=== PATIENT | female | born 1985 | race Caucasian/White ===

== ENCOUNTER 2020-03-13 15:47 | Emergency (ER) | payer OTHER, SELFPAY ==
--- NOTE | 2020-03-13 16:24 | XR_ITS ---
EXAMINATION: XR CHEST CLINICAL INFORMATION: Chest pain COMPARISON: None TECHNIQUE: Frontal portable view of the chest was obtained. 1630 hours FINDINGS: No significant abnormality is noted involving the heart, lungs, mediastinum, bony thorax or soft tissues. XR/XR chest 1V IMPRESSION: Unremarkable examination.
--- NOTE | 2020-03-13 16:24 | ECG_ITS ---
Test Reason : GENERAL MEDICAL Blood Pressure : / mmHG Vent. Rate : 090 BPM Atrial Rate : 090 BPM P-R Int : 132 ms QRS Dur : 062 ms QT Int : 358 ms P-R-T Axes : 068 035 022 degrees QTc Int : 437 ms Normal sinus rhythm Normal ECG No previous ECGs available Referred By: Alejandro Funes Electronically Signed By:Kendrick Montano
[2020-03-13 16:26] VITALS: BP 138/95; PULSE 95; RESP 18; TEMP 36.8; O2SAT 100; BMI 42.0
--- NOTE | 2020-03-13 16:26 | ED.CHESTPAIN ---
HPI - Chest Pain General Chief Complaint: Chest Pain Stated Complaint: Chest pain Time Seen by Provider: 03/13/20 16:22 Source: patient Mode of arrival: ambulatory Limitations: no limitations History of Present Illness HPI narrative: This is a primarily Persian-speaking 34-year-old female who denies any significant past medical history presents ambulatory via triage were she reports that she has been having body aches and right-sided chest pain that radiates to her right arm for the past several days she had a tele visit her primary care doctor advised her to come to the emergency room given her complaints. She reports to me that she has had some body aches, chills and the right-sided chest pain minimal cough. Pain in right side is reproducible and hurts more with movement and palpation. No recent travel or sick contacts. No recent antibiotics or hospitalization. No hormone use. States she has no concern for . MD complaint: chest discomfort Onset (ago): day(s) Prior episodes: Yes (States she had similar type of pain in the past couple years ago ) Pain location: right chest Pain radiation: right arm Severity: moderate Quality: aching Relieving factors: nothing Exacerbating factors: palpation and movement Context: recent illness Treatment prior to arrival: none Risk Factors Coronary artery disease risk factors: none Thoracic aortic dissection risk factors: none Related Data On Oral Contraceptives: No Allergies Allergy/AdvReac Type Severity Reaction Status Date / Time No Known Allergies Allergy Unverified 11/02/19 19:48 Review of Systems Review of Systems: Constitutional: No Weight loss, No Fever, + Chills, No Night Sweats, No Fatigue, No Malaise ENT/Mouth: No Hearing loss, No Ear Pain, + Nasal Congestion, No Sinus Pain, No Hoarseness, No sore throat, No Swallowing Difficulty Eyes: No Eye Pain, No Swelling, No Redness, No Foreign Body, No Discharge, No Vision Changes Cardiovascular: + Chest Pain, No SOB, No Dyspnea on Exertion, No Orthopnea, No Edema, No Palpitations Respiratory: No Smoke Exposure, No Dyspnea Gastrointestinal: No Nausea, No Vomiting, No Diarrhea, No Constipation, No abdominal Pain, No Hematochezia, No Melena Genitourinary: no irregular bleeding, No Dysuria, No Urinary Frequency, No Hematuria, No Urinary Incontinence, No Urgency, No Flank Pain Musculoskeletal: No joint pain, + Myalgias, No Joint Swelling Skin: No Skin Lesions, No rash Neuro: No Weakness, No Numbness, No Paresthesias, No Loss of Consciousness, No Headache Psych: No Anxiety/Panic, No Depression, No Social Issues Heme/Lymph: No Bruising, No Bleeding,No Lymphadenopathy Endocrine: No Polyuria, No Polydipsia, No Temperature Intolerance Yes all other systems are reviewed and are negative [facility] Past Medical History Medical History (Updated 03/13/20 @ 16:41 by Alejandro Funes NP) Chest pain Physical Exam Vital Signs: Vital Signs: Reviewed Const: General: cooperative and healthy appearing; No acute distress or intoxicated appearing Nutritional Appearance: average body habitus Orientation/consciousness: patient oriented x3 HENMT: Head: Yes normal to inspection Ears: hearing grossly normal bilaterally Eyes: General: appearance normal, both eyes and all related structures Visual Alarcon: normal visual alarcon by confrontation Neck: Neck: Yes normal visual inspection, No positive Brudzinski's sign, No positive Kernig's sign and No tender Thyroid: Thyroid normal Chest: Chest palpation & inspection: normal inspection of the chest and tenderness (Right-sided very tender immediately flinched when I press on the chest. ) pectoral muscle and other ([employer] FERNANDO Barcenas ) Resp: Effort & Inspection: normal respiratory effort Auscultation: clear to auscultation bilaterally Cardio: Jugular venous distension: no JVD Rhythm: regular rhythm Heart sounds: S1 normal heart sound present and S2 normal heart sound present GI: Inspection: Yes normal to inspection Percussion: Yes normal to percussion Auscultation: normal bowel sounds : General: Yes no CVA tenderness Back/Spine/Pelvis: Back: no CVA tenderness Skin: General skin exam: no rashes or lesions noted Neuro: General: patient oriented x3 Extrem: General: Yes normal to inspection Course Reevaluation(s) Reevaluation #1: 1710 Sign-out to Silva pending labs, re-evaluation and disposition MDM - Chest Pain MDM Narrative Medical decision making narrative: Perc negative Heart score 0 Pulse oximeter 100% on room air, not tachycardic, blood pressure stable. In review 34-year-old female with 5 days of upper respiratory symptoms and reproducible right-sided chest wall pain radiating to right arm advised by primary care doctor during tele visit to come to emergency room for evaluation given that she was complaining of chest pain. Will check screening labs including cardiac enzymes, chest x-ray EKG and COVID-19. Again clinically more consistent with musculoskeletal viral syndrome type symptoms and less likely cardiopulmonary in etiology. Differential Diagnosis Differential diagnosis: Likely atypical chest pain, costochondritis and chest pain; Unlikely fracture of rib, pneumothorax, stable angina, unstable angina pectoris, st elevation myocardial infarction and biliary colic Differential diagnosis: Viral syndrome, upper respiratory infection Medical Records Data Attestation: I reviewed the patient's medical records. Lab Data Attestation: I reviewed the patient's lab results. Discharge Plan Discharge Clinical Impression: Atypical chest pain
[2020-03-13 16:54] LABS: MANUAL DIFF FLAG NO
[2020-03-13 16:55] VITALS: BP 126/82; PULSE 93
[2020-03-13 16:57] LABS: Basophils Absolute Auto 0.1 X10*3/uL (0.0-0.2); Basophils Percent Auto 0.5 % (0-2); Eosinophils Absolute Auto 0.2 X10*3/uL (0.0-0.4); Eosinophils Percent Auto 1.9 % (0-4); Hematocrit 43.2 % (37-47); Hemoglobin 14.3 g/dl (12.0-16.0); Imm Gran Abs Auto 0.02 X10*3/uL (0.00-0.03); Imm Gran Pct Auto 0.2 % (0.0-0.4); Lymphocytes Absolute Auto 1.4 X10*3/uL (1.2-4.9); Lymphocytes Percent Auto 14.6 % (20-40); Mean Corpuscular HGB Conc 33.1 g/dl (31.0-35.0); Mean Corpuscular Hemoglobin 28.1 pg (27.0-33.0); Mean Corpuscular Volume 84.9 fL (80-98); Mean Platelet Volume 10.9 fL (9.4-12.3); Monocytes Absolute Auto 0.4 X10*3/uL (0.1-1.2); Monocytes Percent Auto 4.5 % (2-11); Neutrophils Absolute Auto 7.5 X10*3/uL (2.0-8.3); Neutrophils Percent Auto 78.3 % (45-73); Platelet Count 295 X10*3/uL (160-400); Red Blood Count 5.09 X10*6/uL (4.20-5.50); Red Cell Distribution Width 12.6 % (11.0-16.0); White Blood Count 9.5 X10*3/uL (4.8-10.8)
[2020-03-13 17:02] LABS: INTERNATIONAL NORM RATIO 1.1 (0.9-1.1); Prothrombin Time 13.2 SEC (10.8-13.0)
[2020-03-13 17:04] LABS: Partial Thromboplastin Time 32.5 SEC (24.1-38.0)
[2020-03-13 17:24] LABS: Glucose Urine UA NEG (NEG); Leukocyte Esterase Urine NEG (NEG); Nitrite Urine NEG (NEG); PH 5.5 (5.0-8.0); Specific Gravity - Urine 1.025 (1.005-1.025); Urine Blood 1+ (NEG); Urine Ketones NEG (NEG); Urine Protein NEG (NEG-TRACE)
[2020-03-13 17:34] LABS: Influenza A PCR NEGATIVE (Negative); Influenza B PCR NEGATIVE (Negative); Resp Syncy Virus RNA Qual PCR NEGATIVE (Negative); SARS COV2 PCR INHOUSE POSITIVE (Negative)
[2020-03-13 17:37] LABS: Alanine Aminotransferase 59 U/L (0-31); Albumin Level 4.2 g/dL (3.5-5.0); Alkaline Phosphatase 114 U/L (39-117); Anion Gap 13 (12-20); Aspartate Amino Transferase 42 U/L (5-31); Bilirubin Total 0.8 mg/dL (0.0-1.0); Blood Urea Nitrogen 11 mg/dL (9-16); Calcium 9.1 mg/dL (8.4-10.2); Carbon Dioxide 25 mmol/L (22-29); Chloride 105 mmol/L (96-108); Creatinine Clr Calc Pharmacy 128.9; Estimated Glomerular Filt Rate > 60; Glucose Random 89 mg/dL (60-115); Potassium 4.2 mmol/l (3.3-5.1); Sodium 139 mmol/L (135-145); Total Protein 7.8 g/dL (6.5-8.0)
[2020-03-13 17:42] LABS: Troponin-I High Sensitivity < 3.5 ng/L (<3.5-17.0)
[2020-03-13 17:50] LABS: Appearance Urine CLEAR; Color Urine YELLOW
[2020-03-13 18:02] LABS: Squamous Epithelial Cell Urine TRACE /LPF; WBC Urine 0 /HPF (0-4)
--- NOTE | 2020-03-13 18:28 | PC.NURSE ---
CLEARED FOR DC BY PROVIDER. ALL MEDICALLY TESTING NEGATIVE, EXCEPT PT CAME BACK COVID POSITIVE. ISOLATION EXPLAINED DURING DC WITH HELP OF THE CLINICAL INTERVIEWER.
== END 2020-03-13 18:31 | disposition home or self-care (01) ==
PROVIDERS: Nurse Practitioner Primary Care; Emergency Provider Emergency Medicine
DX: R07.89 Other chest pain (principal); M79.601 Pain in right arm; Z20.822 Contact with and (suspected) exposure to COVID-19
CPT/HCPCS: 0241U; 36415; 71045; 80053; 81001; 84484; 85025; 85610; 85730; 93005; 99283

== ENCOUNTER 2020-07-11 18:32 | Emergency (ER) | payer OTHER, SELFPAY ==
--- NOTE | ~2020-07-11 | XR_ITS ---
EXAMINATION: CHEST AND RIGHT SHOULDER. CLINICAL INFORMATION: Chest pain COMPARISON: None TECHNIQUE: 2 views chest. 3 views right shoulder FINDINGS: CHEST: Both lungs are fairly well-expanded and clear of acute pneumonic process. The heart size and pulmonary vascularity is normal. No gross bony abnormality seen. RIGHT SHOULDER: There is no visible acute fracture, dislocation or bony erosive changes. Joint spaces are maintained normal. The soft tissues are normal. XR/XR chest 2V IMPRESSION: Unremarkable chest exam. Unremarkable right shoulder exam
--- NOTE | ~2020-07-11 | US_ITS ---
EXAMINATION: US VENOUS ULTRASOUND WITH DOPPLER LOWER EXTREMITY, RIGHT CLINICAL INFORMATION: Right lower extremity pain COMPARISON: None TECHNIQUE: Ultrasound of the deep veins is performed from the hip to the calf with compression sonography and color and pulse Doppler assessment. Spectral analysis with color-flow imaging is performed. FINDINGS: There is normal venous compression and respiratory variation and augmented flow. The visualized common femoral vein, superficial femoral vein, profunda femoral vein, popliteal vein, and the trifurcation region shows no evidence of deep venous thrombosis. There is no significant popliteal fossa cyst. If the patient's symptoms persist, followup ultrasound in 5 days 7 days might be of value to exclude proximal propagation from a non-visualized calf vein. US/US venous duplex LE RT IMPRESSION: No DVT demonstrated in the right lower extremity.
--- NOTE | ~2020-07-11 | XR_ITS ---
EXAMINATION: CHEST AND RIGHT SHOULDER. CLINICAL INFORMATION: Chest pain COMPARISON: None TECHNIQUE: 2 views chest. 3 views right shoulder FINDINGS: CHEST: Both lungs are fairly well-expanded and clear of acute pneumonic process. The heart size and pulmonary vascularity is normal. No gross bony abnormality seen. RIGHT SHOULDER: There is no visible acute fracture, dislocation or bony erosive changes. Joint spaces are maintained normal. The soft tissues are normal. XR/XR shoulder RT min 2V IMPRESSION: Unremarkable chest exam. Unremarkable right shoulder exam
--- NOTE | ~2020-07-11 | CT_ITS ---
EXAMINATION: CT ANGIOGRAM OF THE CHEST WITH AND WITHOUT CONTRAST (CT PULMONARY ANGIOGRAM FOR PE) CLINICAL INFORMATION: Reason for Exam ? PE COMPARISON: None TECHNIQUE: Prior to contrast administration, noncontrast localization images were obtained. Subsequently, multidetector volumetric imaging was performed from the thoracic inlet to below the diaphragms following the administration of 65 mL Omnipaque 350 intravenous contrast. No contrast reaction reported Sagittal, coronal, and MIP oblique sagittal reformatted images were obtained on the CT workstation, uploaded to PACS, and reviewed. This CT examination was performed using dose optimization techniques as appropriate, variously including the following: *Automated exposure control *Adjustment of mA and/or kV according to patient size (this includes techniques or standardized protocols for targeted exams where dose is matched to indication/reason for exam; i.e. extremities or head) *Use of iterative reconstruction technique Total exam dose-length product 305 mGy-cm FINDINGS: QUALITY OF STUDY/CONTRAST BOLUS: Satisfactory. PULMONARY ARTERIES: No central or segmental pulmonary emboli. THORACIC AORTA: No aneurysm or dissection. LUNG: No focal consolidation, nodules or masses. PLEURA: No pleural effusion or pneumothorax. MEDIASTINUM: Normal heart size. Some tiny left thyroid nodules are seen which knee no further follow-up. No pericardial effusion. No hilar or mediastinal lymphadenopathy. No evidence of septal bowing or right heart strain. CHEST WALL/AXILLA: No axillary or internal mammary lymphadenopathy. OSSEOUS STRUCTURES: No acute or suspicious osseous abnormality. UPPER ABDOMEN: Unremarkable. No reflux of contrast into the hepatic veins to suggest elevated right heart pressures. CT/CT angio chest PE protocol IMPRESSION: No evidence of pulmonary emboli VTE: negative
[2020-07-11 18:44] VITALS: BP 106/70; PULSE 90; RESP 16; TEMP 36.1; O2SAT 100; BMI 34.3
--- NOTE | 2020-07-11 19:40 | ED.GENADULT ---
HPI - General Adult General Chief complaint: General Medical Stated complaint: right side pain Time Seen by Provider: 07/11/20 19:40 History of Present Illness HPI narrative: Patient complains of pain primarily in the right side of chest right shoulder right upper back for many weeks and got worse over the past 1 week, as well as right lower back and entire right leg including right posterior calf and thigh, there is no leg swelling there is no shortness of breath, she does get pain in her chest with a deep breath, gustavo is not exertional and is present all the time, worse with movement deep breath and when touched, there is also a mild cough there is no fever no chills no sweating no nausea no vomiting no fainting no feeling faint Patient had COVID a few months ago and recovered Related Data Allergies Allergy/AdvReac Type Severity Reaction Status Date / Time No Known Allergies Allergy Verified 07/11/20 18:50 Review of Systems Review of Systems: Positive for right-sided chest pain right shoulder pain right back pain, also right leg pain including the back of the thigh and the back of the calf Negatives are no fever no chills no dizziness no weakness no fainting no feeling faint no headache no shortness of breath no palpitations no abdominal pain no nausea vomiting or diarrhea no urinary symptoms no rash no injury Yes all other systems are reviewed and are negative PMFSH Past Medical History Source: nursing notes reviewed Medical History Chest pain Social History Social History Advance Directives: No Advance Directives Information Provided: Yes Patient : No Physical Exam Vital Signs: Vital Signs: Last Vital Signs Temp 97 F 07/11/20 18:44 Pulse 90 07/11/20 18:44 Resp 16 07/11/20 18:44 BP 106/70 07/11/20 18:44 Pulse Ox 100 07/11/20 18:44 Body Mass Index 34.3 General appearance is no acute distress, calmer and cooperative The head is normocephalic atraumatic The pupils are anicteric, no pallor Pharynx is clear with moist mucous membranes The chest is clear to auscultation bilateral with symmetric equal breath sounds Pain is easily produced in the right chest area with palpation movement and deep breath There is no skin rash in the right chest area The heart no murmur auscultated The abdomen soft nontender The back there was some upper and lower tenderness on the right side of the back, no bony tenderness no focal CVA tenderness Extremities there was no pedal edema there was no calf swelling however there was right-sided tenderness to the right posterior lower leg and the right posterior calf, neurovascular intact distal Course Course Course Narrative: Patient medical history significant for COVID infection several months ago otherwise no significant past medical history complains of pain on the whole right side of the body including the right chest and the right leg, this is been going on for many weeks got worse over the past 1 week EKG was a normal sinus rhythm with a rate of 80 CO interval was 138 QRS duration 72 QT was 376 there were no acute ischemic changes no acute ST changes Differential includes PE, musculoskeletal pain, DVT, heart disease Case was discussed and signed out to at 21:00 to follow labs, x-rays and re-evaluate and dispo patient
--- NOTE | 2020-07-11 19:47 | ECG_ITS ---
Test Reason : CHEST PAIN Blood Pressure : / mmHG Vent. Rate : 080 BPM Atrial Rate : 080 BPM P-R Int : 138 ms QRS Dur : 072 ms QT Int : 376 ms P-R-T Axes : 013 019 008 degrees QTc Int : 433 ms Normal sinus rhythm Normal ECG When compared with ECG of 13-MAR-2020 15:58, No significant change was found Referred By: Sheng Dhaliwal Electronically Signed By:ALONZO MILLER
--- NOTE | 2020-07-11 21:07 | PC.NURSE ---
UNABLE TO OBTAIN AN IV AT THIS TIME TIRED ON LEFT AC WITHOUT EFFECT JENNIFER JAMA STATED WE COULD DO STRAIGHT STICK FOR LABS.
[2020-07-11 21:18] LABS: MANUAL DIFF FLAG NO
[2020-07-11 21:22] LABS: D Dimer 656 NG/ML
[2020-07-11 21:29] LABS: Basophils Absolute Auto 0.1 X10*3/uL (0.0-0.2); Basophils Percent Auto 0.4 % (0-2); Eosinophils Absolute Auto 0.2 X10*3/uL (0.0-0.4); Eosinophils Percent Auto 1.6 % (0-4); Hematocrit 42.5 % (37-47); Hemoglobin 14.1 g/dl (12.0-16.0); Imm Gran Abs Auto 0.03 X10*3/uL (0.00-0.03); Imm Gran Pct Auto 0.2 % (0.0-0.4); Lymphocytes Absolute Auto 3.3 X10*3/uL (1.2-4.9); Lymphocytes Percent Auto 23.3 % (20-40); Mean Corpuscular HGB Conc 33.2 g/dl (31.0-35.0); Mean Corpuscular Hemoglobin 28.1 pg (27.0-33.0); Mean Corpuscular Volume 84.7 fL (80-98); Mean Platelet Volume 10.5 fL (9.4-12.3); Monocytes Absolute Auto 0.6 X10*3/uL (0.1-1.2); Monocytes Percent Auto 4.2 % (2-11); Neutrophils Absolute Auto 9.8 X10*3/uL (2.0-8.3); Neutrophils Percent Auto 70.3 % (45-73); Platelet Count 308 X10*3/uL (160-400); Red Blood Count 5.02 X10*6/uL (4.20-5.50); Red Cell Distribution Width 12.6 % (11.0-16.0)
[2020-07-11 21:38] LABS: Alanine Aminotransferase 53 U/L (0-31); Alkaline Phosphatase 110 U/L (39-117); Anion Gap 13 (12-20); Aspartate Amino Transferase 34 U/L (5-31); Bilirubin Direct 0.3 mg/dL (0.0-0.5); Bilirubin Total 0.7 mg/dL (0.0-1.0); Blood Urea Nitrogen 14 mg/dL (9-16); Calcium 9.3 mg/dL (8.4-10.2); Carbon Dioxide 25 mmol/L (22-29); Chloride 104 mmol/L (96-108); Creatinine Clr Calc Pharmacy 112.3; Estimated Glomerular Filt Rate > 60; Glucose Random 96 mg/dL (60-115); Potassium 4.3 mmol/L (3.3-5.1); Sodium 138 mmol/L (135-145); Total Protein 7.5 g/dL (6.5-8.0)
[2020-07-11 21:44] LABS: Troponin-I High Sensitivity < 3.5 ng/L (<3.5-17.0)
[2020-07-11 22:22] LABS: UPreg QC Valid YES; Urine Pregnancy NEGATIVE (NEGATIVE)
[2020-07-12] MEDS: iohexoL 350 MG/ML 100 ML INFUS..BTL 65 ML IV (00:10)
--- NOTE | 2020-07-12 00:20 | PC.NURSE ---
IV OBTAINED BY FERNANDO POST TO LEFT AC.
[2020-07-12 00:40] VITALS: BP 110/71; PULSE 83; RESP 16; TEMP 36.7; O2SAT 100
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
== END 2020-07-12 01:35 | disposition home or self-care (01) ==
PROVIDERS: Physician Assistant Medical; Emergency Provider Emergency Medicine
DX: R07.89 Other chest pain (principal); R10.9 Unspecified abdominal pain; R60.0 Localized edema; M79.604 Pain in right leg; R79.89 Other specified abnormal findings of blood chemistry; Z86.16 Personal history of COVID-19
CPT/HCPCS: 36415; 71046; 71275; 73030; 80048; 80076; 81025; 84484; 85025; 85379; 93005; 93971; 96372; 99284; Q9967

== ENCOUNTER 2020-07-15 10:59 | Emergency (ER) | payer OTHER, SELFPAY ==
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
[2020-07-15 11:13] VITALS: BP 100/64; BP 103/55; PULSE 88; PULSE 92; RESP 20; TEMP 37.2; O2SAT 100; O2SAT 98; BMI 34.3
--- NOTE | 2020-07-15 11:34 | PC.NURSE ---
pt reports having nauseas, dry heaving, verbal order from catarino pinon to give zofran
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
--- NOTE | 2020-07-15 12:25 | ECG_ITS ---
Test Reason : CHEST WALL PAIN Blood Pressure : / mmHG Vent. Rate : 078 BPM Atrial Rate : 078 BPM P-R Int : 132 ms QRS Dur : 070 ms QT Int : 384 ms P-R-T Axes : 026 051 033 degrees QTc Int : 437 ms Normal sinus rhythm with sinus arrhythmia Normal ECG When compared with ECG of 11-JUL-2020 20:05, No significant change was found Referred By: Emily Callejas Electronically Signed By:ALONZO MILLER
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
[2020-07-15 12:43] LABS: UPreg QC Valid YES
[2020-07-15 12:45] LABS: Urine Pregnancy NEGATIVE (NEGATIVE)
[2020-07-15] MEDS: Ibuprofen 600 MG TABLET PO (13:36)
[2020-07-15 15:26] VITALS: BP 110/50; PULSE 80; RESP 20; O2SAT 98
== END 2020-07-15 15:32 | disposition home or self-care (01) ==
PROVIDERS: Nurse Practitioner Family; Emergency Provider Emergency Medicine Emergency Medical Services
DX: S20.214A Contusion of middle front wall of thorax, initial encounter (principal); S80.01XA Contusion of right knee, initial encounter; V43.62XA Car passenger injured in collision with other type car in traffic accident, initial encounter; M54.5 Low back pain; Y93.89 Activity, other specified; Y92.414 Local residential or business street as the place of occurrence of the external cause; Y99.9 Unspecified external cause status
CPT/HCPCS: 71046; 72100; 73564; 81025; 93005; 99284

== ENCOUNTER 2020-09-07 13:59 | Emergency (ER) | payer OTHER, SELFPAY ==
[2020-09-07 14:15] VITALS: BP 113/64; PULSE 102; RESP 20; TEMP 36.9; O2SAT 98; BMI 36.2
--- NOTE | 2020-09-07 15:14 | ED.URI ---
HPI - URI/Sore Throat General Chief Complaint: Upper Respiratory Symptoms Stated Complaint: SORE THROAT VOMITING BACK PAIN Time Seen by Provider: 09/07/20 15:14 Source: patient Mode of arrival: ambulatory Limitations: no limitations History of Present Illness HPI Narrative: Myalgias, headache, sore throat, chills MD elicited complaint: fever, cough and sore throat Onset (ago): day(s) Consistency: constant Severity: mild Exacerbating factors: nothing Relieving factors: nothing Related Data Previous Rx's Medication Instructions Recorded ibuprofen 400 mg PO Q6H PRN #20 tab 07/12/20 cyclobenzaprine 10 mg PO TID PRN #10 tab 07/15/20 ibuprofen 600 mg PO Q8H PRN #20 tab 07/15/20 Allergies Allergy/AdvReac Type Severity Reaction Status Date / Time No Known Allergies Allergy Verified 07/11/20 18:50 Review of Systems Constitutional: Constitutional: Reports no additional constitutional complaints Eyes: Eyes: Reports no additional eye complaints ENT: Denies dizziness Cardiovascular: Cardiovascular: Reports no additional cardiovascular complaints Respiratory: Respiratory: Reports as per HPI Gastrointestinal: Gastrointestinal: Reports no additional gastrointestinal complaints Genitourinary: Genitourinary: Reports no additional female genitourinary complaints Musculoskeletal: Musculoskeletal: Reports no additional musculoskeletal complaints Integumentary/Breasts: Skin/Breast: Denies rash Neurologic: Reports system reviewed and no additional complaints, except as documented, Denies dizziness and Denies Sensory deficit (Neuro) Psychiatric: Psychiatric: Denies anxiety PMFSH Past Medical History Medical History Chest pain Social History Social History Alcohol intake: never Smoked in Last 30 Days: No Use of substances other than those prescribed or required for medical reasons: No Advance Directives: No Advance Directives Information Provided: No Patient : No Physical Exam Vital Signs: Vital Signs: Last Vital Signs Temp 98.4 F 09/07/20 14:15 Pulse 102 H 09/07/20 14:15 Resp 20 09/07/20 14:15 BP 113/64 09/07/20 14:15 Pulse Ox 98 09/07/20 14:15 Body Mass Index 36.2 Const: General: healthy appearing Nutritional Appearance: average body habitus Orientation/consciousness: oriented to person and patient oriented x3 Limitations: no limitations HENMT: Head: Yes normal to inspection Ears: external ears normal General nose exam: Normal external nose present Mouth: Normal oral and palatal mucosa present and oropharynx normal Throat: Yes posterior oropharynx normal Eyes: General: appearance normal, both eyes and all related structures Neck: Other: supple Neck: Yes normal visual inspection Chest: Chest palpation & inspection: normal inspection of the chest Resp: Auscultation: clear to auscultation bilaterally Cardio: Jugular venous distension: no JVD Rate: regular rate Rhythm: regular rhythm Heart sounds: S1 normal heart sound present and S2 normal heart sound present GI: Inspection: Yes normal to inspection Palpation (GI): Soft to palpation, nontender and No hepatosplenomegaly present Auscultation: normal bowel sounds : General: Yes no CVA tenderness Back/Spine/Pelvis: Back: no CVA tenderness Skin: General skin exam: no rashes or lesions noted Neuro: General: oriented to person and patient oriented x3 Cranial nerves: Yes CN's II-XII intact bilaterally Motor exam (neuro): 5/5 motor strength present throughout Sensory Exam: No Sensory deficit (Neuro) Extrem: General: Yes normal to inspection Psych: Appearance: grossly normal Course Reevaluation(s) Reevaluation #1: Strep and Covid both negative. Will send patient home with COVID precautions Time: 18:00 MDM - URI/Sore Throat Lab Data Labs: Lab Results 09/07/20 09/07/20 Range/Units 15:36 15:36 Coronavirus (PCR) NEGATIVE (Negative) Influenza Type A (PCR) NEGATIVE (Negative) Influenza Type B (PCR) NEGATIVE (Negative) RSV RNA Qual (PCR) NEGATIVE (Negative) S. pyogenes GrpA MARTHA Negative (Negative) Discharge Plan Discharge Clinical Impression: Upper respiratory infection Qualifiers: URI type: unspecified viral URI Qualified Code(s): J06.9 - Acute upper respiratory infection, unspecified Patient Disposition: Home, Self-Care Instructions: Upper Respiratory Infection (ED) Additional Instructions: patient still may have COVID despite negative test should remain in isolation for 10 days Prescriptions: No Action ibuprofen 600 mg tablet 600 mg PO Q8H PRN (Reason: pain) Qty: 20 RF: 0 cyclobenzaprine 10 mg tablet 10 mg PO TID PRN (Reason: muscle spasm) Qty: 10 RF: 0 ibuprofen 400 mg tablet 400 mg PO Q6H PRN (Reason: pain) Qty: 20 RF: 0 Referrals: Physician,Unknown [Primary Care Provider] - 5 days
[2020-09-07] MEDS: Acetaminophen 325 MG TABLET 975 MG PO (15:55)
[2020-09-07 16:00] LABS: IDNOW Serial# 9DD0AD1C; Strep A Nucleic Acid Negative (Negative)
[2020-09-07 16:22] LABS: Influenza A PCR NEGATIVE (Negative); Influenza B PCR NEGATIVE (Negative); Resp Syncy Virus RNA Qual PCR NEGATIVE (Negative); SARS COV2 PCR INHOUSE NEGATIVE (Negative)
== END 2020-09-07 18:09 | disposition home or self-care (01) ==
PROVIDERS: Emergency Provider Emergency Medicine
DX: J06.9 Acute upper respiratory infection, unspecified (principal); Z20.822 Contact with and (suspected) exposure to COVID-19; J02.9 Acute pharyngitis, unspecified
CPT/HCPCS: 0241U; 36415; 87651; 99283; 99284

== ENCOUNTER 2020-10-22 08:27 | Emergency (ER) | payer OTHER, SELFPAY ==
--- NOTE | ~2020-10-22 | XR_ITS ---
EXAMINATION: XR ANKLE, RIGHT CLINICAL INFORMATION: Fall, trauma, pain COMPARISON: None TECHNIQUE: AP, lateral, and mortise views of the right ankle. FINDINGS: There is mild lateral soft tissue swelling. The malleoli appear intact and the ankle mortise is symmetric. There is no visible fracture or dislocation. No visible ankle capsular effusion. The retrocalcaneal recess is preserved. The subtalar joint is unremarkable. Base fifth metatarsal appears intact. XR/XR ankle RT 2V IMPRESSION: No fracture or dislocation. No visible capsular effusion.
--- NOTE | ~2020-10-22 | XR_ITS ---
EXAMINATION: XR KNEE, RIGHT CLINICAL INFORMATION: Fall, trauma, pain COMPARISON: None TECHNIQUE: Four views of the right knee. FINDINGS: There is no fracture, dislocation, or destructive process. No joint narrowing or erosive change. Hoffa's fat pad appears normal. There may be a small suprapatellar effusion. XR/XR knee RT 3V IMPRESSION: 1. No fracture or dislocation. 2. Probable small suprapatellar effusion.
[2020-10-22 08:54] VITALS: BP 116/75; PULSE 89; RESP 16; TEMP 36.7; O2SAT 98; BMI 40.2
[2020-10-22] MEDS: Ketorolac Tromethamine 15 MG/ML VIAL IM (10:19)
--- NOTE | 2020-10-22 10:21 | ED_ITS ---
HPI - Extremity Injury (Lower) General Chief Complaint: Extremity Injury, Lower Stated Complaint: rt ankle injury Time Seen by Provider: 10/22/20 09:39 Source: patient Mode of arrival: ambulatory History of Present Illness HPI Narrative: 35-year-old female with a past medical history of chest pain, chronic back and leg pain, presenting to the ED complaining of RLE pain/swelling/ecchymosis s/p falling down the stairs last night. Reports right leg gave out and slipped and fell, denies head trauma or LOC. Denies symptoms prior to fall including CP/SOB, headache, lightheadedness or dizziness. Reports pain with ambulation since incident. Reports associated paresthesias. Denies weakness, fever MD complaint: knee injury and ankle injury Related Data Previous Rx's Medication Instructions Recorded ibuprofen 400 mg tablet 400 mg PO Q6H PRN #20 tab 07/12/20 cyclobenzaprine 10 mg tablet 10 mg PO TID PRN #10 tab 07/15/20 ibuprofen 600 mg tablet 600 mg PO Q8H PRN #20 tab 07/15/20 Allergies Allergy/AdvReac Type Severity Reaction Status Date / Time No Known Allergies Allergy Verified 07/11/20 18:50 Review of Systems Review of Systems: Constitutional: No Fever, No Chills ENT/Mouth: No Ear Pain, No Hoarseness, No sore throat, No Rhinorrhea Cardiovascular: No Chest Pain, No SOB Respiratory: No Cough, No Sputum, No Wheezing Gastrointestinal: No Nausea, No Vomiting, No Diarrhea, No Constipation, No Abdominal pain Genitourinary: No Dysuria, No Hematuria, No Urinary Incontinence Skin: No Skin Lesions, No rash Neuro: No Weakness, No Numbness, + Paresthesias, no lightheadedness, no head trauma, no LOC Yes all other systems are reviewed and are negative [facility] Past Medical History Attestation statement: The following information was validated with the patient. Medical History (Updated 10/22/20 @ 10:32 by JENNIFER Campos) Chest pain Chronic back pain Chronic leg pain Social History Social History Alcohol intake: never Advance Directives: No Advance Directives Information Provided: No Patient : No Physical Exam Vital Signs: Vital Signs: Last Vital Signs Temp 98.0 F 10/22/20 08:54 Pulse 89 10/22/20 08:54 Resp 16 10/22/20 08:54 BP 116/75 10/22/20 08:54 Pulse Ox 98 10/22/20 08:54 Body Mass Index 40.2 Const: General: cooperative and healthy appearing Orientation/consciousness: patient oriented x3 Limitations: no limitations HENMT: Head: Yes normal to inspection Ears: hearing grossly normal bilaterally General nose exam: Normal external nose present Face and sinus: Yes normal facial exam Eyes: General: appearance normal, both eyes and all related structures EOM: EOMs intact bilaterally Neck: Neck: Yes normal visual inspection Resp: Effort & Inspection: normal respiratory effort and no respiratory distress Cardio: Rate: regular rate Peripheral pulses: dorsalis pedis present Skin: Rashes: no rashes Wounds: no wounds Neuro: General: patient oriented x3 Gait exam (Neuro): Normal gait present Extrem: Other: Right knee with mild swelling and notable ecchymosis. Tender to palpation. Decreased flexion secondary to pain. Right [place] with scattered healing ecchymosis. Right ankle with tenderness to palpation mild swelling. Decreased ROM secondary to pain. Neurovascularly intact distally. Right foot nontender. Sensation is intact to light touch Course Course Course Narrative: XR ankle RT 2V IMPRESSION: No fracture or dislocation. No visible capsular effusion. XR knee RT 3V IMPRESSION: 1. No fracture or dislocation. 2. Probable small suprapatellar effusion. >> SONYA wrap applied for comfort/stability and compression. Results discussed a cycle repairer. Patient is to follow-up with orthopedics as needed MDM - Extremity Injury (Lower) MDM Narrative Medical decision making narrative: Will rule out fracture vs MSK pain/strain versus ligamental/tendon or meniscal injury Medical Records Attestation: I reviewed the patient's medical records. Lab Data Attestation: I reviewed the patient's lab results. Discharge Plan Discharge Clinical Impression: Effusion, right knee Prescriptions: No Action ibuprofen 600 mg tablet 600 mg PO Q8H PRN (Reason: pain) Qty: 20 RF: 0 cyclobenzaprine 10 mg tablet 10 mg PO TID PRN (Reason: muscle spasm) Qty: 10 RF: 0 ibuprofen 400 mg tablet 400 mg PO Q6H PRN (Reason: pain) Qty: 20 RF: 0
--- NOTE | 2020-10-22 10:48 | PC.NURSE ---
APPLIED SONYA WRAP TO BOTH RIGHT KNEE AND RIGHT ANKLE PER PROVIDER. RN AWARE.
== END 2020-10-22 10:48 | disposition home or self-care (01) ==
PROVIDERS: Emergency Provider Emergency Medicine
DX: M25.461 Effusion, right knee (principal); M79.661 Pain in right lower leg
CPT/HCPCS: 73562; 73600; 96372; 99283; 99284; J1885

== ENCOUNTER 2020-11-06 08:04 | Emergency (ER) | payer OTHER, SELFPAY ==
--- NOTE | ~2020-11-06 | US_ITS ---
EXAMINATION: US PELVIS CLINICAL INFORMATION: Abdominal pain. Rule out torsion. COMPARISON: None TECHNIQUE: Ultrasound of the pelvis is performed using both transabdominal and transvaginal transducers along with Doppler. Transvaginal imaging is performed due to inadequate visualization transabdominally. FINDINGS: The uterus is anteverted and anteflexed measuring 9.1 cm in length, 4.2 cm in AP and 4.8 cm in transverse dimension. The uterus is heterogeneous with endometrial thickness of 0.7 cm. The right ovary measures 3.3 x 1.9 x 2.5 cm and volume 8.2 mL. There is normal arterial and venous flow seen on the Doppler exam. Left ovary measures 4.1 x 2.5 x 4.1 cm and volume 22 mL. There is normal arterial and venous flow seen on Doppler exam. There is no free fluid in cul-de-sac. US/US pelvic ovarian doppler IMPRESSION: There is no evident torsion seen. The uterus is unremarkable.
--- NOTE | ~2020-11-06 | US_ITS ---
EXAMINATION: US PELVIS CLINICAL INFORMATION: Abdominal pain. Rule out torsion. COMPARISON: None TECHNIQUE: Ultrasound of the pelvis is performed using both transabdominal and transvaginal transducers along with Doppler. Transvaginal imaging is performed due to inadequate visualization transabdominally. FINDINGS: The uterus is anteverted and anteflexed measuring 9.1 cm in length, 4.2 cm in AP and 4.8 cm in transverse dimension. The uterus is heterogeneous with endometrial thickness of 0.7 cm. The right ovary measures 3.3 x 1.9 x 2.5 cm and volume 8.2 mL. There is normal arterial and venous flow seen on the Doppler exam. Left ovary measures 4.1 x 2.5 x 4.1 cm and volume 22 mL. There is normal arterial and venous flow seen on Doppler exam. There is no free fluid in cul-de-sac. US/US pelvic complete IMPRESSION: There is no evident torsion seen. The uterus is unremarkable.
--- NOTE | ~2020-11-06 | CT_ITS ---
EXAMINATION: CT ABDOMEN AND PELVIS WITHOUT CONTRAST CLINICAL INFORMATION: Left flank and abdominal pain. COMPARISON: None TECHNIQUE: Multidetector volumetric imaging was performed from the superior aspect of the liver through the pubic symphysis. Sagittal and coronal reformatted images were obtained on the technologist's workstation. This CT examination was performed using dose optimization techniques as appropriate, variously including the following: *Automated exposure control *Adjustment of mA and/or kV according to patient size (this includes techniques or standardized protocols for targeted exams where dose is matched to indication/reason for exam; i.e. extremities or head) *Use of iterative reconstruction technique DLP: 931 mGy-cm FINDINGS: LUNG BASES: The visualized lung bases are unremarkable. LIVER, GALLBLADDER, AND BILIARY TREE: The liver is low in attenuation. No focal hepatic lesion or biliary ductal dilatation is present. The gallbladder is unremarkable with no evidence of radiopaque gallstones, gallbladder wall thickening, or obvious pericholecystic inflammatory changes. PANCREAS: Unremarkable. SPLEEN: Unremarkable. ADRENAL GLANDS: Unremarkable. KIDNEYS AND URETERS: The kidneys are normal in size, shape, and attenuation. No hydronephrosis, hydroureter, or calculi seen. No perinephric stranding. BLADDER: Unremarkable. GASTROINTESTINAL TRACT: There is mild diverticulosis of the colon. No evidence of diverticulitis is seen. The small and large bowel are otherwise unremarkable. The appendix is unremarkable. ABDOMINAL WALL: There is diastasis of the rectus muscles. LYMPH NODES: Normal. VASCULAR: Unremarkable. PELVIC VISCERA: The left ovary is slightly enlarged measuring 4 x 4 cm. There is a 2.5 x 3 cm left ovarian cyst. The uterus and right adnexa are unremarkable. OSSEOUS STRUCTURES: Unremarkable. CT/CT abdomen pelvis wo con IMPRESSION: 2.5 x 3 cm left ovarian cyst. Diverticulosis of the colon. Fatty liver.
[2020-11-06 08:41] VITALS: BP 121/79; PULSE 81; RESP 19; TEMP 36.6; O2SAT 100; BMI 36.3
--- NOTE | 2020-11-06 09:41 | ED.BACK ---
HPI - Back Pain/Injury General Chief Complaint: Back Pain/Injury Stated Complaint: back pain Time Seen by Provider: 11/06/20 09:20 Source: patient Mode of arrival: ambulatory Limitations: language barrier (Cam[place]onian-speaking) History of Present Illness HPI Narrative: 35-year-old female who reports she has a history of chronic back pain and leg pain of unknown etiology presenting to the ED with complaints of atraumatic back pain that started this morning that is radiating to her left flank. She reports that she did not have this pain last night. She denies any injuries related to this. She reports she has had this back pain intermittently for years although has never been evaluated for her back pain. She denies any fevers, chills, chest pain, shortness of breath, palpitations, dyspnea exertion, orthopnea, nausea/vomiting/diarrhea or constipation, black or bloody stools, paresthesias, weakness, focal weakness, rashes, history of IV drug use, dysuria, hematuria, or urinary or bowel incontinence or retention or any other symptoms complaints or concerns at this time. MD elicited complaint: back pain Pertinent past history: prior back pain (Although has never been evaluated for) Onset (ago): hour(s) (Woke up with it this morning) Timing: constant and progressively worsening Similar Symptoms Previously: Yes Quality: aching Location: lumbar spine and left flank Radiation: none Exacerbating factors: movement Relieving factors: none Context: unknown Associated symptoms: denies other symptoms Work related injury: No Related Data Previous Rx's Medication Instructions Recorded ibuprofen 400 mg tablet 400 mg PO Q6H PRN #20 tab 07/12/20 cyclobenzaprine 10 mg tablet 10 mg PO TID PRN #10 tab 07/15/20 ibuprofen 600 mg tablet 600 mg PO Q8H PRN #20 tab 07/15/20 acetaminophen 500 mg tablet 500 mg PO Q6H PRN #20 tab 10/22/20 (Tylenol Extra Strength) naproxen 500 mg tablet 500 mg PO BID PRN 10 Days #20 tab 10/22/20 cyclobenzaprine 10 mg tablet 10 mg PO TID PRN #14 tab 11/06/20 naproxen 500 mg tablet 500 mg PO BID PRN #10 tab 11/06/20 Allergies Allergy/AdvReac Type Severity Reaction Status Date / Time No Known Allergies Allergy Verified 07/11/20 18:50 Review of Systems Review of Systems: Constitutional : No trauma, No Weight loss, No Fever, No Chills, ENT/Mouth : No Hearing loss, No Ear Pain, No Nasal Congestion, No Sinus Pain, No Hoarseness, No sore throat, No Rhinorrhea, No Swallowing Difficulty Cardiovascular : No Chest Pain, No SOB Respiratory : No Cough, No Dyspnea Gastrointestinal : No Nausea, No Vomiting, No Diarrhea, + abdominal Pain, No Hematochezia, No Melena Genitourinary : No Dysuria, No Urinary Frequency, No Hematuria, No Urinary or Bowel Incontinence/retention Musculoskeletal : + Back pain, No neck pain, No joint stiffness, No joint swelling Skin : No Skin Lesions, No rash or signs of infection Neuro : No Weakness, No radiation, No Numbness, No Paresthesias, No headache, no loss of bowel or bladder incontinence, no saddle anesthesia, Focal weakness, No radiation Denies history of IV drug usage. Yes all other systems are reviewed and are negative [facility] Past Medical History Attestation statement: The following information was validated with the patient. Medical History Chest pain Chronic back pain Chronic leg pain Social History Social History Alcohol intake: never Advance Directives: No Physical Exam Vital Signs: Vital Signs: Last Vital Signs Temp 98.7 F 11/06/20 13:31 Pulse 70 11/06/20 13:31 Resp 16 11/06/20 13:31 BP 113/70 11/06/20 13:31 Pulse Ox 97 11/06/20 13:31 Body Mass Index 36.3 vital signs have been reviewed as normal and appeared to be correct. Blood pressure normal. Heart rate normal. Respiration rate normal. Temperature normal. Oxygen saturation normal. Appearance: Alert. Oriented X3. No acute distress. Head: Normal external exam. Normocephalic. Atraumatic. Eyes: PERRLA. EOMI. Conjunctiva and sclera normal. Eyelids normal. ENT: Pharynx normal. Uvula midline. Moist mucous membranes. Neck: Normal inspection. Neck supple. FROM. No adenopathy. No meningeal signs. No neck mass noted. CVS: Normal heart rate and rhythm. Heart sound normal. No murmurs noted. Pulses normal throughout. Respiratory: No respiratory distress. Painless inspiration. Breath sounds normal. No wheezes/rales/rhonchi noted. Chest nontender. No accessory muscle usage noted or decreased air movement noted. Abdomen: Soft and mild tenderness palpation to left flank/left abdomen. Bowel sounds normal in all 4 quadrants. No distention noted. No organomegaly noted. No visible injury noted. Back: No CVA tenderness. Full range of motion noted. No obvious deformities, or edema. Mild para-spinal muscular tenderness from lumbar region to coccyx. Full ROM in back and lower extremities. 5/5 strength hip extension/flexion, abduction, adduction. Mild Lumbar pain with hip flexion against resistance. Straight leg raise test negative on right; Straight leg raise test negative on left; Reflexes normal ankle and knee bilaterally; EHL motor strength normal bilaterally. No rashes/lesion/induration/fluctuance or signs infection noted. Skin: Skin warm and dry. Normal skin color. Normal skin turgor. No rashes/lesions/lacerations noted. Extremities: Extremities exhibit normal range of motion. Extremities nontender. Neuro: Oriented X 3. No motor deficit. No sensory deficit. Reflexes normal. Patient has a normal steady gait. Course Course Course Narrative: 9:30am - 35-year-old female who reports she has a history of chronic back pain and leg pain of unknown etiology presenting to the ED with complaints of atraumatic back pain that started this morning that is radiating to her left flank. She reports that she did not have this pain last night. She denies any injuries related to this. She reports she has had this back pain intermittently for years although has never been evaluated for her back pain. Plan: UA, urine and CT scan abdomen pelvis without IV contrast. Provide symptomatic treatment with naproxen 500 mg and 10 mg of Flexeril then re-evaluate. Reevaluation(s) Reevaluation #1: - blood in the urine although no evidence of UTI. Urine is negative. - 4 x 4 cm left ovary and large and a 2.5 x 3 cm ovarian cyst Diverticulosis of the colon. In a fatty liver. Otherwise no other new processes were noted only chronic changes. - therefore I printed this out and gave it to the patient. I re-examined her to evaluate to see if she had any point left lower quadrant/suprapubic tenderness and she does on my exam. Therefore n due to the size of the ovarian cyst and the enlarged ovary and patient having tenderness palpation to the left lower quadrant/suprapubic area will obtain an ultrasound to evaluate for possible torsion Time: 11:27 Reevaluation #2: - ultrasound of Doppler/pelvic revealed normal flow to bilateral ovaries not consistent with torsion. Therefore at this time will DC home with symptomatic treatment instructions return if any new or worsening symptoms to follow up with primary care provider. Patient understands agrees with this plan. Time: 15:31 MDM - Back Pain/Injury Medical Records Attestation: I reviewed the patient's medical records. Lab Data Attestation: I reviewed the patient's lab results. Labs: Lab Results 11/06/20 11/06/20 Range/Units 09:45 09:45 Urine Color YELLOW Urine Appearance CLEAR Urine pH 6.0 (5.0-8.0) Ur Specific [place] 1.020 (1.005-1.025) Urine Protein NEG (NEG-TRACE) MG/DL Urine Glucose (UA) NEG (NEG) MG/DL Urine Ketones NEG (NEG) MG/DL Urine Blood 3+ H (NEG) Urine Nitrite NEG (NEG) Ur Leukocyte Esterase NEG (NEG) Urine RBC 15-29 H (0) /HPF Urine WBC 0 (0-4) /HPF Ur Squamous Epith Cells TRACE /LPF Urine Bacteria NONE /LPF Urine Mucus TRACE /LPF Urine Test NEGATIVE (NEGATIVE) Imaging Data CT scan abdomen pelvis without IV contrast: Attestation: I personally reviewed and interpreted this imaging study as follows: Radiologist's impression: FINDINGS: LUNG BASES: The visualized lung bases are unremarkable.? LIVER, GALLBLADDER, AND BILIARY TREE: The liver is low in attenuation. No focal hepatic lesion or biliary ductal dilatation is present. The gallbladder is unremarkable with no evidence of radiopaque gallstones, gallbladder wall thickening, or obvious pericholecystic inflammatory changes.? PANCREAS: Unremarkable.? SPLEEN: Unremarkable.? ADRENAL GLANDS: Unremarkable.? KIDNEYS AND URETERS: The kidneys are normal in size, shape, and attenuation. No hydronephrosis, hydroureter, or calculi seen. No perinephric stranding. ? BLADDER: Unremarkable.? GASTROINTESTINAL TRACT: There is mild diverticulosis of the colon. No evidence of diverticulitis is seen. The small and large bowel are otherwise unremarkable. The appendix is unremarkable.? ABDOMINAL WALL: There is diastasis of the rectus muscles.? LYMPH NODES: Normal. VASCULAR: Unremarkable. PELVIC VISCERA: The left ovary is slightly enlarged measuring 4 x 4 cm. There is a 2.5 x 3 cm left ovarian cyst. The uterus and right adnexa are unremarkable. OSSEOUS STRUCTURES: Unremarkable.? CT/CT abdomen pelvis wo con IMPRESSION: 2.5 x 3 cm left ovarian cyst. Diverticulosis of the colon. Fatty liver. Pelvic/Doppler ultrasound of ovaries: Attestation: I personally reviewed and interpreted this imaging study as follows: Radiologist's impression: FINDINGS: The uterus is anteverted and anteflexed measuring 9.1 cm in length, 4.2 cm in AP and 4.8 cm in transverse dimension. The uterus is heterogeneous with endometrial thickness of 0.7 cm. The right ovary measures 3.3 x 1.9 x 2.5 cm and volume 8.2 mL. There is normal arterial and venous flow seen on the Doppler exam. Left ovary measures 4.1 x 2.5 x 4.1 cm and volume 22 mL. There is normal arterial and venous flow seen on Doppler exam. There is no free fluid in cul-de-sac. US/US pelvic complete IMPRESSION: There is no evident torsion seen. ? The uterus is unremarkable. Discharge Plan Discharge Clinical Impression: Cyst of left ovary, Diverticulosis, Fatty liver, Strain of lumbar paraspinal muscle Patient Disposition: Home, Self-Care Instructions: Ovarian Cyst (ED), Diverticulosis (ED), Muscle Strain (ED), R.I.C.E. Treatment (ED) Prescriptions: New naproxen 500 mg tablet 500 mg PO BID PRN (Reason: pain) Qty: 10 RF: 0 cyclobenzaprine 10 mg tablet 10 mg PO TID PRN (Reason: muscle spasm) Qty: 14 RF: 0 No Action ibuprofen 600 mg tablet 600 mg PO Q8H PRN (Reason: pain) Qty: 20 RF: 0 cyclobenzaprine 10 mg tablet 10 mg PO TID PRN (Reason: muscle spasm) Qty: 10 RF: 0 ibuprofen 400 mg tablet 400 mg PO Q6H PRN (Reason: pain) Qty: 20 RF: 0 acetaminophen [Tylenol Extra Strength] 500 mg tablet 500 mg PO Q6H PRN (Reason: pain or fever) Qty: 20 RF: 0 naproxen 500 mg tablet 500 mg PO BID PRN (Reason: pain) 10 Days Qty: 20 RF: 0 Referrals: Physician,Unknown [Primary Care Provider] - 2 days (your pcp) Print Language: [place]
[2020-11-06 10:16] LABS: Appearance Urine CLEAR; Color Urine YELLOW; Glucose Urine UA NEG (NEG); Leukocyte Esterase Urine NEG (NEG); Nitrite Urine NEG (NEG); UACC Culture Trigger NO; Urine Blood 3+ (NEG); Urine Ketones NEG (NEG); Urine Protein NEG (NEG-TRACE)
[2020-11-06] MEDS: Ondansetron ODT 4 MG TAB.RAPDIS TRANSLINGU (10:18)
[2020-11-06 10:19] LABS: UPreg QC Valid YES; Urine Pregnancy NEGATIVE (NEGATIVE)
[2020-11-06] MEDS: Cyclobenzaprine HCl 10 MG TABLET PO (10:19)
[2020-11-06] MEDS: NaPROXEN 500 MG TABLET PO (10:19)
[2020-11-06] MEDS: Meclizine HCl 25 MG TABLET 50 MG PO (10:31)
[2020-11-06 10:41] LABS: Mucus Urine TRACE /LPF; Squamous Epithelial Cell Urine TRACE /LPF; WBC Urine 0 /HPF (0-4)
[2020-11-06 13:31] VITALS: BP 113/70; PULSE 70; RESP 16; TEMP 37.1; O2SAT 97
== END 2020-11-06 15:37 | disposition home or self-care (01) ==
PROVIDERS: Physician Assistant Medical; Emergency Provider Emergency Medicine
DX: K57.30 Diverticulosis of large intestine without perforation or abscess without bleeding (principal); K76.0 Fatty (change of) liver, not elsewhere classified; N83.202 Unspecified ovarian cyst, left side; M54.5 Low back pain; R60.0 Localized edema; R10.9 Unspecified abdominal pain; Z79.899 Other long term (current) drug therapy
CPT/HCPCS: 74176; 76856; 81001; 81003; 81025; 93975; 99284

== ENCOUNTER → 2020-11-08 08:59 | Outpatient (BNVA) | payer OTHER, SELFPAY | PROVIDERS: Visit Provider Physician Assistant | DX: S83.91XA Sprain of unspecified site of right knee, initial encounter (principal); S93.401A Sprain of unspecified ligament of right ankle, initial encounter | CPT/HCPCS: 99202 ==